=== PATIENT | male | born 1930 | race Caucasian/White ===

== ENCOUNTER 2016-11-06 19:20 | Emergency (ER) | payer MEDICARE ==
[2016-11-06] MEDS ORDERED: KETOROLAC TROMETHAMINE 15 MG/ML VIAL ONE (20:18)
[2016-11-06] MEDS ORDERED: PREDNISONE 20 MG TABLET ONE (20:58)
[2016-11-06] MEDS ORDERED: HYDROCODONE/ACETAMINOPHEN 5/325MG TABLET ONE (20:58)
--- NOTE | 2016-11-07 07:50 | RAD ---
SHOULDER-RIGHT 2 OR MORE VIEWS History: Shoulder pain without injury. Comparison: None. Findings: The osseous structures appear to be intact with no discrete fracture visualized. The glenohumeral alignment appears to be within expected. The acromiohumeral distance is well maintained. No soft tissue calcifications are identified. The acromioclavicular joint is not widened. The included lung field appears to be unremarkable. There is incidental note made of a downsloping distal acromion process. Prior median sternotomy is present. Impression: 1. No discrete fracture or dislocation visualized.
== END 2016-11-06 21:06 | disposition home or self-care (01) ==
LOC: ED 19:20
DX: M75.51 Bursitis of right shoulder (principal); E11.9 Type 2 diabetes mellitus without complications; I25.10 Atherosclerotic heart disease of native coronary artery without angina pectoris; I10 Essential (primary) hypertension; Z95.1 Presence of aortocoronary bypass graft
CPT/HCPCS: 73030; 99283 ×2; 96372; 93005; J7512; J1885; A9270